=== PATIENT | female | born 1930 | race Caucasian/White ===

== ENCOUNTER 2017-03-17 22:41 | Emergency (ER) | payer MEDICARE, MEDICAID ==
[2017-03-17 22:47] VITALS: TEMP 97.6
[2017-03-18] MEDS: Sodium Chloride 0.9% 1,000 ML IV STA (00:07)
[2017-03-18 00:35] LABS: BASO % 0.4 % (0.0-2.0); EOS # 0.1 K/uL (0.0-0.7); EOS % 0.6 % (0.0-4.0); HEMATOCRIT 27.3 % (34.0-47.0); LYMPH # 1.7 K/uL (1.0-4.3); LYMPH % 18.7 % (20.0-40.0); MEAN CELL VOLUME 82.5 fl (81.0-99.0); MEAN CORPUSCULAR HGB CONC 32.8 g/dL (33.0-37.0); MEAN PLATELET VOLUME 8.1 fl (7.2-11.7); MONO # 0.8 K/uL (0.0-0.8); MONO % 8.3 % (0.0-10.0); NEUT # 6.7 K/uL (1.8-7.0); NRBC % 0.1 % (0.0-0.0); RED CELL DISTRIBUTION WIDTH 19.2 % (11.5-14.5); WHITE BLOOD COUNT 9.2 K/uL (4.8-10.8)
[2017-03-18 00:44] LABS: ALB/GLOB RATIO 1.7 (1.0-2.1); ALKALINE PHOSPHATASE 68 U/L (38-126); ALT/SGPT 22 U/L (9-52); AST/SGOT 35 U/L (14-36); BILIRUBIN,TOTAL 0.4 mg/dl (0.2-1.3); BLOOD UREA NITROGEN 17 mg/dl (7-17); CALCIUM 9.8 mg/dL (8.4-10.2); CARBON DIOXIDE 26 mmol/L (22-30); CHLORIDE 104 mmol/L (98-107); GFR AFRICAN-AMERICAN > 60; GLUCOSE,RANDOM 98 mg/dL (65-105); LIPASE 73 U/L (23-300); POTASSIUM 4.2 MMOL/L (3.6-5.0); SODIUM 140 mmol/l (132-148); TOTAL PROTEIN 7.6 G/DL (6.3-8.2)
[2017-03-18] MEDS ORDERED: Iohexol 300 100 ML IJ ONE (00:56)
[2017-03-18] MEDS ORDERED: Sodium Chloride 0.9% 50 ML IV ONE (00:56)
--- NOTE | 2017-03-18 01:15 | ED PDOC ---
HPI: Abdomen Time Seen by Provider: 03/17/17 22:58 Chief Complaint (Nursing): GI Problem Chief Complaint (Provider): abd pain, diarrhea History Per: Patient History/Exam Limitations: no limitations Onset/Duration Of Symptoms: Days (1) Outside of [place] travel?: No Current Symptoms Are (Timing): Still Present Additional Complaint(s): 86yo female with PMHx including HTN and arthritis presents to the ED with c/o abdominal pain and diarrhea x 1 day that started this morning. Patient reports multiple episodes of watery diarrhea. Denies blood in stool or vomiting. States abdominal pain is located in RUQ, described as crampy and intermittent. Denies fevers. Notes fatigue and weakness as well. PCP: Dr. Walker Past Medical History Reviewed: Historical Data, Nursing Documentation, Vital Signs Vital Signs: Last Vital Signs Temp 97.6 F 03/17/17 22:43 Pulse 95 H 03/18/17 01:32 Resp 19 03/18/17 01:32 BP 178/89 H 03/18/17 01:32 Pulse Ox 100 03/18/17 06:11 - Medical History PMH: Arthritis, HTN - Surgical History Surgical History: Cholecystectomy Denies: CABG Other surgeries: left knee replacement - Family History Family History: States: No Known Family Hx - Home Medications Home Medications: Ambulatory Orders Medication Instructions Recorded Naproxen [Naprosyn Tab] 250 mg PO Q12 #20 tab 10/31/14 traMADol [Ultram] 50 mg PO TID #16 tab 10/31/14 Sulfamethoxazole/Trimethoprim 1 tab PO BID #14 tab 04/02/15 [Bactrim DS 800 mg-160 mg] Dicyclomine [Bentyl] 20 mg PO Q12 PRN #20 tab 03/18/17 - Allergies Allergies/Adverse Reactions: Allergies Allergy/AdvReac Type Severity Reaction Status Date / Time No Known Allergies Allergy Verified 04/02/15 15:09 Review of Systems ROS Statement: Except As Marked, All Systems Reviewed And Found Negative Constitutional: Positive for: Weakness, Other (fatigue ). Negative for: Fever Gastrointestinal: Positive for: Abdominal Pain, Diarrhea, Other (no blood in stool ). Negative for: Vomiting Physical Exam - Reviewed Nursing Documentation Reviewed: Yes Vital Signs Reviewed: Yes - Physical Exam Appears: Positive for: Well, No Acute Distress Head Exam: Positive for: ATRAUMATIC, NORMAL INSPECTION, NORMOCEPHALIC Skin: Positive for: Normal Color, Warm, Dry Eye Exam: Positive for: Normal appearance, EOMI, PERRL ENT: Positive for: Normal ENT Inspection Neck: Positive for: Normal, Painless ROM, Supple Cardiovascular/Chest: Positive for: Regular Rate, Rhythm. Negative for: Murmur , Tachycardia Respiratory: Positive for: Normal Breath Sounds. Negative for: Wheezing, Respiratory Distress Gastrointestinal/Abdominal: Positive for: Soft, Tenderness (RUQ ). Negative for : Distended, Guarding, Rebound Back: Positive for: Normal Inspection. Negative for: L CVA Tenderness, R CVA Tenderness Extremity: Positive for: Normal ROM. Negative for: Deformity, Swelling Neurologic/Psych: Positive for: Alert, Oriented - Laboratory Results Result Diagrams: 03/17/17 00:20 03/17/17 00:20 - ECG O2 Sat by Pulse Oximetry: 99 Pulse Ox Interpretation: Normal (RA) Medical Decision Making Medical Decision Makin: Impression: colitis vs. gastroenteritis vs. pancreatitis vs. cholecystitis vs. diverticulitis Plan: CT A/P Labs IVF reassess Patient s/o to Dr. Rico at [address], labs, re-eval. Scribe Attestation: Documented by Isabelle Alegre acting as a scribe for Rio Vo MD. Provider Scribe Attestation: All medical record entries made by the Scribe were at my direction and personally dictated by me. I have reviewed the chart and agree that the record accurately reflects my personal performance of the history, physical exam, medical decision making, and the department course for this patient. I have also personally directed, reviewed, and agree with the discharge instructions and disposition. Disposition - Clinical Impression Clinical Impression: Gastroenteritis - Patient ED Disposition Is Patient to be Admitted: Transfer of Care Counseled Patient/Family Regarding: Studies Performed, Diagnosis - Disposition Disposition: Transfer of Care Disposition Time: 00:00 Condition: STABLE Prescriptions: Dicyclomine [Bentyl] 20 mg PO Q12 PRN #20 tab PRN Reason: Diarrhea/Abdominal pain Instructions: Gastroenteritis (ED) Print Language: [place] Patient Signed Over To: Nirmal Rico Handoff Comments: pending CT, labs, re-eval
[2017-03-18 01:32] VITALS: BP 178/89; PULSE 95; RESP 19
--- NOTE | 2017-03-18 01:39 | ED PDOC ---
- Laboratory Results Result Diagrams: 03/17/17 00:20 03/17/17 00:20 - ECG O2 Sat by Pulse Oximetry: 100 Medical Decision Making Medical Decision Making: Case endorsed from Dr. Vo at 0000 pending labs, CT, re-eval. 0204: CT A/P impression: Marked biliary ductal dilatation in this patient who is status post cholecystectomy, with suspicion for mild pancreatic ductal dilatation. Laboratory correlation and consideration of endoscopic correlation suggested. No specific findings of enteritis or diverticulitis, noting numerous diverticuli , formed fecal material. No pathologic bowel dilatation. Cardiac findings as above noting apparent valvular disease. Limited bladder evaluation, correlate for infection 0220: Labs reviewed, show no clinically significant abnormalities. Patient noted to have elevated platelet count which she states is chronic for her. Patient reports feeling improved and is stable for d/c. Dx: gastroenteritis Rx: bentyl F/U w/ Dr. Walker (pt's PCP) Scribe Attestation: Documented by Isabelle Alegre acting as a scribe for Nirmal Rico MD. Provider Scribe Attestation: All medical record entries made by the Scribe were at my direction and personally dictated by me. I have reviewed the chart and agree that the record accurately reflects my personal performance of the history, physical exam, medical decision making, and the department course for this patient. I have also personally directed, reviewed, and agree with the discharge instructions and disposition. Disposition Counseled Patient/Family Regarding: Studies Performed, Diagnosis, Need For Followup, Rx Given - Clinical Impression Clinical Impression: Gastroenteritis - POA Present On Arrival: None - Disposition Disposition: Routine/Home Disposition Time: 02:20 Condition: STABLE Prescriptions: Dicyclomine [Bentyl] 20 mg PO Q12 PRN #20 tab PRN Reason: Diarrhea/Abdominal pain Instructions: Gastroenteritis (ED) Print Language: [place]
--- NOTE | 2017-03-18 02:04 | CT ---
EXAM: CT Abdomen and Pelvis With Intravenous Contrast CLINICAL HISTORY: 86 years old, female; Signs and symptoms; Other: Diarrhea; Prior surgery; Surgery date: 6+ months; Surgery type: Gall bladder removed; Additional info: Diarrhea abd pain TECHNIQUE: Axial computed tomography images of the abdomen and pelvis with intravenous contrast. This CT exam was performed using one or more of the following dose reduction techniques: automated exposure control, adjustment of the mA and/or kV according to patient size, and/or use of iterative reconstruction technique. Coronal and sagittal reformatted images were created and reviewed. CONTRAST: 90 mL of [id number] administered intravenously. EXAM DATE/TIME: Exam ordered 03/17/2017 11:40 PM COMPARISON: No relevant prior studies available. FINDINGS: Lower thorax: Lungs with bilateral interstitial prominence, this may be chronic for this patient is, there is no specific finding of acute air space disease. Calcifications of the aortic valve leaflets, in addition as seen in series 3 image 6 there is poorly localized calcification that may be associated with the mitral valve. Air in the esophagus in keeping with reflux. Small hiatus hernia. ABDOMEN: Liver: Unremarkable. No mass. Gallbladder and bile ducts: Cholecystectomy. There is biliary ductal dilatation, laboratory correlation is recommended, the common bile duct is dilated up to 13 mm mean for dilatation of what is likely the cystic duct remnant seen coronal image 37 and adjacent. Pancreas: The pancreatic duct series 3 image 56 is between 4-5 mm with prominence of the pancreatic ducts not excluded. A focal pancreatic lesion is not she. Spleen: Unremarkable. No splenomegaly. Adrenals: Unremarkable. No mass. Kidneys and ureters: There is a cyst in the left kidney, hypoattenuating too small to characterize findings seen bilaterally, no hydronephrosis of either kidney is seen. Nephrograms appear symmetric. No definite ureteral stones are seen noting limitations related to phleboliths. Stomach and bowel: There is extensive diverticular disease, there are no specific findings of acute diverticulitis. Please note that some portions of the bowel wall are not well evaluated related to under distention. Appendix: No findings to suggest acute appendicitis. PELVIS: Bladder: The bladder is partially collapsed , limited evaluation of the wall. Reproductive: The uterus is not well seen suggesting prior hysterectomy, please correlate with history. ABDOMEN and PELVIS: Intraperitoneal space: Unremarkable. No free air. No significant fluid collection. Bones/joints: Degenerative spine changes and scoliosis convex right centered in the lower lumbar spine. Grade 1 anterolisthesis L3-L4. No acute fracture. No dislocation. Soft tissues: Surgical changes of the anterior abdominal wall. Vasculature: Unremarkable. No abdominal aortic aneurysm. Lymph nodes: Unremarkable. No enlarged lymph nodes. Other findings: There is no previous imaging or previous reports available. IMPRESSION: Marked biliary ductal dilatation in this patient who is status post cholecystectomy, with suspicion for mild pancreatic ductal dilatation. Laboratory correlation and consideration of endoscopic correlation suggested. No specific findings of enteritis or diverticulitis, noting numerous diverticuli, formed fecal material. No pathologic bowel dilatation. Cardiac findings as above noting apparent valvular disease. Limited bladder evaluation, correlate for infection
[2017-03-19 21:23] VITALS: O2SAT 99
== END 2017-03-18 02:35 | disposition home or self-care (01) ==
LOC: H.ER 22:41
DX: K29.70 Gastritis, unspecified, without bleeding (principal); R19.7 Diarrhea, unspecified; I10 Essential (primary) hypertension
CPT/HCPCS: 74177; 80053; 83690; 85025; 87040; 96360; 99283; J7040; Q9967